=== PATIENT | female | born 1995 | race Caucasian/White ===

== ENCOUNTER 2020-12-12 18:06 | Observation (INO) | payer BC, OTHER ==
[~2020-12-12 18:06] MED LIST: COLACE 100MG C100 MG PO; FEOSOL325 MG PO; IBUPROFEN600 MG PO; LORTAB 5-325 M1 EACH PO
[2020-12-12 20:33] LABS: HEMOGLOBIN 10.8 gm/dl (12.3-15.3); RED BLOOD COUNT 3.73 M/UL (4.00-5.10); WHITE BLOOD COUNT 9.6 K/UL (4.5-11.0)
== END 2020-12-13 13:52 | disposition home or self-care (01) ==
LOC: CDU 18:06 → OB 12-13 07:31
PROVIDERS: ADMIT Obstetrics & Gynecology
DX: O47.03 False labor before 37 completed weeks of gestation, third trimester (principal); O34.33 Maternal care for cervical incompetence, third trimester; O99.213 Obesity complicating pregnancy, third trimester; E66.9 Obesity, unspecified; Z3A.34 34 weeks gestation of pregnancy; O99.891 Other specified diseases and conditions complicating pregnancy; R06.02 Shortness of breath; Z90.49 Acquired absence of other specified parts of digestive tract; Z20.822 Contact with and (suspected) exposure to COVID-19
CPT/HCPCS: 36415; 81001; 83518; 85025; 96361; 96372; G0378; G0379; J0702; J3105; J3475; U0002

== ENCOUNTER 2020-12-22 17:04 | Inpatient (IN) | payer BC, OTHER ==
[~2020-12-22] VITALS: Ht 160 cm; Wt 111.1 kg
[2020-12-22 17:40] LABS: HEMOGLOBIN 11.6 gm/dl (12.3-15.3); RED BLOOD COUNT 3.92 M/UL (4.00-5.10); WHITE BLOOD COUNT 11.8 K/UL (4.5-11.0)
[2020-12-23] MEDS ORDERED: DOCUSATE SODIU100 MG PO (12:42)
[2020-12-23] MEDS ORDERED: HYDROCODON-ACE1 EAC4 PO (12:42)
[2020-12-23] MEDS ORDERED: IBUPROFEN600 MG PO (12:42)
[2020-12-24 03:39] LABS: HEMOGLOBIN 10.1 gm/dl (12.3-15.3)
== END 2020-12-24 17:42 | disposition home or self-care (01) | DRG 807 ==
LOC: GENOP 17:04 → OB 17:23
PROVIDERS: Obstetrics & Gynecology; ADMIT Obstetrics & Gynecology
PROC: 10E0XZZ Delivery of Products of Conception, External Approach (ICD-10-PCS; principal; 2020-12-23)
PROC: 0KQM0ZZ Repair Perineum Muscle, Open Approach (ICD-10-PCS; 2020-12-23)
PROC: 10907ZC Drainage of Amniotic Fluid, Therapeutic from Products of Conception, Via Natural or Artificial Opening (ICD-10-PCS; 2020-12-23)
PROC: 4A1HXCZ Monitoring of Products of Conception, Cardiac Rate, External Approach (ICD-10-PCS; 2020-12-23)
DX: O60.14X0 Preterm labor third trimester with preterm delivery third trimester, not applicable or unspecified (principal); Z37.0 Single live birth; O99.214 Obesity complicating childbirth; Z20.822 Contact with and (suspected) exposure to COVID-19; O70.1 Second degree perineal laceration during delivery; E66.9 Obesity, unspecified; Z3A.36 36 weeks gestation of pregnancy
CPT/HCPCS: 36415; 51702; 81001; 85014; 85018; 85025; 86850; 86900; 86901; 90715; J0595; J2405; J2590; J7120; U0002